=== PATIENT | male | born 1945 | race Caucasian/White ===

== ENCOUNTER 2021-07-01 09:55 | Emergency (ER) | payer MEDICARE, OTHER ==
[2021-07-01 11:28] LABS: INR 1.16 (0.9-1.2); PROTHROMBIN TIME 14.2 SECONDS (11.8-13.4); PTT 30.3 SECONDS (24.4-34.7)
[2021-07-01 11:38] LABS: ALBUMIN 3.2 g/dL (3.4-5.0); BILIRUBIN - TOTAL 0.4 mg/dL (0.2-1.0); BUN/CREAT RATIO (CALC) 17.5 RATIO; CREATININE 1.66 mg/dL (0.67-1.17); GLOBULIN (CALCULATION) 5.3 g/dL; MAGNESIUM 1.4 mg/dL (1.8-2.4); POTASSIUM 3.7 mmol/L (3.5-5.1); TOTAL PROTEIN 8.5 g/dL (6.4-8.2)
[2021-07-01 11:42] LABS: LACTIC ACID 1.1 mmol/L (0.4-1.9)
[2021-07-01 14:20] LABS: CKMB 1.7 ng/mL (0.0-3.6)
[2021-07-01] MEDS ORDERED: NORCO 5-325 TA1 EACH PO ×2 (15:33→15:34)
== END 2021-07-01 17:15 | disposition home or self-care (01) ==
LOC: FER 09:55
PROVIDERS: Emergency Medicine
DX: S20.212A Contusion of left front wall of thorax, initial encounter (principal); M23.92 Unspecified internal derangement of left knee; I10 Essential (primary) hypertension; E11.9 Type 2 diabetes mellitus without complications; W55.22XA Struck by cow, initial encounter; Y92.009 Unspecified place in unspecified non-institutional (private) residence as the place of occurrence of the external cause
CPT/HCPCS: 36415; 70450; 71260; 73564; 73700; 80053; 82553; 83605; 83690; 83735; 83880; 84484; 85610; 85730; 93005; J2270; J2405; J7030

== ENCOUNTER → 2021-09-12 | Day surgery (SDC) | payer MEDICARE, OTHER ==
[~2021-09-12] VITALS: Ht 162.6 cm; Wt 64.4 kg
[~2021-09-12] MED LIST: ATORVASTATIN CA40 MG PO; CLOPIDOGREL75 MG PO; ELIQUIS5 MG PO; FENOFIBRATE134 MG PO; LASIX20 MG PO; LOVAZA1 GM PO; METFORMIN HCL500 M3 PO; METOPROLOL SUC100 MG PO; NORCO 5-325 TA1 EACH PO; PANTOPRAZOLE SO40 MG PO; RANOLAZINE ER1000 MG PO; TRADJENTA5 MG PO; VENTOLIN HFA IN18 GM INH; VITAMIN D325 MC1 PO
== END | disposition home or self-care (01) ==
LOC: FAS 09:07
DX: I87.2 Venous insufficiency (chronic) (peripheral) (principal); I11.0 Hypertensive heart disease with heart failure; I50.9 Heart failure, unspecified; E11.51 Type 2 diabetes mellitus with diabetic peripheral angiopathy without gangrene; I25.10 Atherosclerotic heart disease of native coronary artery without angina pectoris; K21.9 Gastro-esophageal reflux disease without esophagitis; I48.91 Unspecified atrial fibrillation; C34.90 Malignant neoplasm of unspecified part of unspecified bronchus or lung; Z87.891 Personal history of nicotine dependence; Z79.01 Long term (current) use of anticoagulants; Z79.84 Long term (current) use of oral hypoglycemic drugs; Z79.899 Other long term (current) drug therapy
CPT/HCPCS: 71045; C1788; J0690; J1644; J2250; J2704; J7120

== ENCOUNTER 2021-10-16 01:56 | Emergency (ER) | payer MEDICARE, OTHER | END 2021-10-16 04:39 | disposition home or self-care (01) | LOC: FER 01:56 | DX: R04.0 Epistaxis (principal); E11.9 Type 2 diabetes mellitus without complications | CPT/HCPCS: 99283; C9046 ==

== ENCOUNTER 2021-11-04 19:42 | Inpatient (IN) | payer MEDICARE, OTHER ==
[~2021-11-04] VITALS: Ht 167.6 cm; Wt 63.6 kg
[2021-11-04 20:21] LABS: BASOPHIL 0.5 % (0-2); EOSINOPHIL 0.7 % (0-7); HCT 25.2 % (42.0-52.0); HGB 8.1 g/dl (13.2-18.0); LYMPHOCYTE 5.7 % (15-48); MCH 30.9 pg (25.0-31.0); MCHC 32.1 g/dL (32.0-36.0); MCV 96.2 fL (78.0-100.0); MONOCYTE 11.9 % (0-12); MPV 10.2 fL (6.0-9.5); NEUTROPHIL 78.9 % (41-80); NRBC 0; PLT 236 K/uL (150-400); RBC 2.62 M/uL (4.70-6.00); RDW 20.2 % (11.5-14.0); WBC 8.1 K/uL (4.0-10.5)
[2021-11-04 20:42] LABS: INR 1.28 (0.9-1.2); PROTHROMBIN TIME 15.6 SECONDS (11.9-13.9); PTT 44.2 SECONDS (24.9-34.6)
[2021-11-04 20:50] LABS: ALBUMIN 2.4 g/dL (3.4-5.0); BILIRUBIN - TOTAL 0.5 mg/dL (0.2-1.0); BUN/CREAT RATIO (CALC) 14.7 RATIO; CREATININE 1.16 mg/dL (0.67-1.17); GLOBULIN (CALCULATION) 3.7 g/dL; LACTIC ACID 1.3 mmol/L (0.4-1.9); POTASSIUM 4.7 mmol/L (3.5-5.1); TOTAL PROTEIN 6.1 g/dL (6.4-8.2)
[2021-11-04 20:56] LABS: CORONAVIRUS 2019 SARS-COV-2 NEGATIVE (NEGATIVE); INFLUENZA A NAA NEGATIVE (NEGATIVE)
[2021-11-05] MEDS ORDERED: RANEXA500 MG PO (00:34)
[2021-11-05] MEDS ORDERED: LASIX40 MG PO (00:35)
[2021-11-05] MEDS ORDERED: TOPROL XL50 MG PO (00:35)
[2021-11-05] MEDS ORDERED: ISOSORBIDE MONO60 MG PO (00:36)
[2021-11-05] MEDS ORDERED: ELIQUIS5 MG PO (00:36)
[2021-11-05 06:14] LABS: BASOPHIL 0.3 % (0-2); EOSINOPHIL 0 % (0-7); HCT 22.2 % (42.0-52.0); HGB 7.1 g/dl (13.2-18.0); LYMPHOCYTE 7.6 % (15-48); MCH 30.3 pg (25.0-31.0); MCV 94.9 fL (78.0-100.0); MONOCYTE 6.4 % (0-12); NEUTROPHIL 84.2 % (41-80); NRBC 0; PLT 176 K/uL (150-400); RBC 2.34 M/uL (4.70-6.00); RDW 20.1 % (11.5-14.0); WBC 3.3 K/uL (4.0-10.5)
[2021-11-05 07:11] LABS: CKMB 2.1 ng/mL (0.0-3.6)
[2021-11-05 08:01] LABS: BUN/CREAT RATIO (CALC) 14.3 RATIO; C-REACTIVE PROTEIN 4.2 mg/dL (<=0.90); CREATININE 1.26 mg/dL (0.67-1.17); MAGNESIUM 0.9 mg/dL (1.8-2.4); PHOSPHORUS 4.9 mg/dL (2.6-4.7); POTASSIUM 4.5 mmol/L (3.5-5.1)
[2021-11-06 05:40] LABS: BASOPHIL 0.4 % (0-2); EOSINOPHIL 1.1 % (0-7); HCT 22.7 % (42.0-52.0); HGB 7.3 g/dl (13.2-18.0); LYMPHOCYTE 12.6 % (15-48); MCH 30.7 pg (25.0-31.0); MCHC 32.2 g/dL (32.0-36.0); MCV 95.4 fL (78.0-100.0); MONOCYTE 22.6 % (0-12); NEUTROPHIL 62.2 % (41-80); NRBC 0; PLT 201 K/uL (150-400); RBC 2.38 M/uL (4.70-6.00); RDW 20.8 % (11.5-14.0)
[2021-11-06 05:48] LABS: WBC 4.7 K/uL (4.0-10.5)
[2021-11-06 05:55] LABS: BUN/CREAT RATIO (CALC) 16.8 RATIO; CREATININE 1.43 mg/dL (0.67-1.17); POTASSIUM 3.8 mmol/L (3.5-5.1)
[2021-11-06 10:24] LABS: IRON % SATURATION 32.7 %SAT (20-50)
[2021-11-06 10:51] LABS: FOLIC ACID (SERUM) 11.5 ng/mL (8.6-58.9)
[2021-11-07 06:42] LABS: BASOPHIL 0.2 % (0-2); EOSINOPHIL 0 % (0-7); HCT 27.3 % (42.0-52.0); HGB 9.2 g/dl (13.2-18.0); MCH 30.8 pg (25.0-31.0); MCHC 33.7 g/dL (32.0-36.0); MONOCYTE 12.2 % (0-12); MPV 10.3 fL (6.0-9.5); NEUTROPHIL 77.2 % (41-80); NRBC 0; PLT 221 K/uL (150-400); RBC 2.99 M/uL (4.70-6.00); RDW 20.8 % (11.5-14.0); WBC 4.5 K/uL (4.0-10.5)
[2021-11-07 06:58] LABS: MCV 91.3 fL (78.0-100.0)
[2021-11-07 07:02] LABS: BUN/CREAT RATIO (CALC) 17.2 RATIO; CREATININE 1.34 mg/dL (0.67-1.17); MAGNESIUM 1.1 mg/dL (1.8-2.4); POTASSIUM 4.1 mmol/L (3.5-5.1)
[2021-11-08 04:18] LABS: BUN/CREAT RATIO (CALC) 15.5 RATIO; CREATININE 1.48 mg/dL (0.67-1.17); POTASSIUM 4.1 mmol/L (3.5-5.1)
[2021-11-08 04:19] LABS: MAGNESIUM 2.1 mg/dL (1.8-2.4)
[2021-11-08 05:57] LABS: HCT 31.3 % (42.0-52.0); HGB 10.3 g/dl (13.2-18.0); MCH 30.9 pg (25.0-31.0); MCHC 32.9 g/dL (32.0-36.0); MPV 10.3 fL (6.0-9.5); RBC 3.33 M/uL (4.70-6.00); RDW 21.2 % (11.5-14.0); WBC 6.5 K/uL (4.0-10.5)
[2021-11-08 10:42] LABS: FT4 (FREE T4) 1.4 ng/dL (0.76-1.46)
[2021-11-09 06:04] LABS: BASOPHIL 0.1 % (0-2); EOSINOPHIL 0 % (0-7); HCT 27.5 % (42.0-52.0); HGB 8.8 g/dl (13.2-18.0); MCH 30.3 pg (25.0-31.0); MCV 94.8 fL (78.0-100.0); MONOCYTE 11.1 % (0-12); MPV 10.1 fL (6.0-9.5); NEUTROPHIL 82.1 % (41-80); PLT 271 K/uL (150-400); RDW 20.4 % (11.5-14.0); WBC 7.5 K/uL (4.0-10.5)
[2021-11-09 06:26] LABS: BUN/CREAT RATIO (CALC) 24.8 RATIO; CREATININE 1.37 mg/dL (0.67-1.17); POTASSIUM 4.5 mmol/L (3.5-5.1)
[2021-11-09 08:02] LABS: LYMPHOCYTE(M) 5 % (15-48); MONOCYTE(M) 6 % (0-12); NEUTROPHILS(M) 89 % (41-80); NRBC 0; TOTAL CELL COUNT 100
[2021-11-09 08:03] LABS: ANISOCYTOSIS SLIGHT
[2021-11-09 08:18] LABS: PLATELET ESTIMATE NORMAL; PLATELET MORPHOLOGY NORMAL
[2021-11-09] MEDS ORDERED: PREDNISONE 20MG20 MG PO (11:57)
[2021-11-09] MEDS ORDERED: AMIODARONE HCL200 MG PO (11:57)
[2021-11-09] MEDS ORDERED: TOPROL XL 50 MG50 MG PO (11:57)
[2021-11-09] MEDS ORDERED: VENTOLIN HFA IN18 GM INH (11:59)
== END 2021-11-09 13:46 | disposition home health service (06) | DRG 291 ==
LOC: FER 19:42 → FTCU 22:37
PROVIDERS: Allergy & Immunology Allergy; Internal Medicine; Nurse Practitioner; Nurse Practitioner Acute Care; Nurse Practitioner Family; ADMIT Internal Medicine
PROC: B24BZZZ Ultrasonography of Heart with Aorta (ICD-10-PCS; principal; 2021-11-04)
PROC: 5A09357 Assistance with Respiratory Ventilation, Less than 24 Consecutive Hours, Continuous Positive Airway Pressure (ICD-10-PCS; 2021-11-04)
PROC: 30233N1 Transfusion of Nonautologous Red Blood Cells into Peripheral Vein, Percutaneous Approach (ICD-10-PCS; 2021-11-06)
DX: I13.0 Hypertensive heart and chronic kidney disease with heart failure and stage 1 through stage 4 chronic kidney disease, or unspecified chronic kidney disease (principal); I50.23 Acute on chronic systolic (congestive) heart failure; J96.01 Acute respiratory failure with hypoxia; J96.02 Acute respiratory failure with hypercapnia; J44.1 Chronic obstructive pulmonary disease with (acute) exacerbation; C34.90 Malignant neoplasm of unspecified part of unspecified bronchus or lung; I48.92 Unspecified atrial flutter; Z20.822 Contact with and (suspected) exposure to COVID-19; N18.30 Chronic kidney disease, stage 3 unspecified; E11.22 Type 2 diabetes mellitus with diabetic chronic kidney disease; I48.0 Paroxysmal atrial fibrillation; I25.10 Atherosclerotic heart disease of native coronary artery without angina pectoris; E83.42 Hypomagnesemia; D63.0 Anemia in neoplastic disease; E11.51 Type 2 diabetes mellitus with diabetic peripheral angiopathy without gangrene; E78.5 Hyperlipidemia, unspecified; E11.65 Type 2 diabetes mellitus with hyperglycemia; I87.2 Venous insufficiency (chronic) (peripheral); Z87.891 Personal history of nicotine dependence; Z82.49 Family history of ischemic heart disease and other diseases of the circulatory system; Z92.21 Personal history of antineoplastic chemotherapy; Z95.1 Presence of aortocoronary bypass graft; Z99.81 Dependence on supplemental oxygen; Z98.61 Coronary angioplasty status; Z79.01 Long term (current) use of anticoagulants
CPT/HCPCS: 36415; 36430; 36600; 71045; 71250; 80048; 80053; 80061; 82553; 82607; 82746; 82803; 82962; 83036; 83540; 83550; 83605; 83615; 83735; 83880; 84100; 84145; 84439; 84443; 84484; 85025; 85610; 85730; 86140; 86850; 86900; 86901; 86922; 87040; 93005; 94010; 94640; 94660; 94664; 94667; 94668; 97162; 97165; 97530-GP; J0282; J1100; J1642; J1650; J1940; J2405; J2543; J2916; J2920; J3010; J3475; J7050; J7060; P9016; U0002